=== PATIENT | female | born 1970 | race Asian ===

== ENCOUNTER 2021-09-22 06:53 | Outpatient (CLI) | payer OTHER, SELFPAY ==
[2021-09-22 08:05] LABS: Hematocrit 43.7 % (37.0-47.0); Hemoglobin 13.6 g/dL (12.0-15.0)
[2021-09-22 08:13] LABS: Cholesterol 210 mg/dL (0-200); HDL Direct 64 mg/dL; Triglycerides 209 mg/dL (<150)
[2021-09-22 08:15] LABS: Prothrombin Time 12.9 Seconds (11.1-14.7)
[2021-09-22 08:24] LABS: LDL Cholesterol Direct 95 mg/dL
[2021-09-22 09:15] LABS: Iron 115 ug/dL (37-170)
[2021-09-22 09:29] LABS: Percent Iron Saturation 28 % (20-50)
[2021-09-22 09:59] LABS: HAV RESULT Negative (Negative); Hepatitis B Core IgM Result Negative (Negative)
[2021-09-22 10:03] LABS: Hepatitis B Surface Antigen Positive (Negative)
[2021-09-22 10:10] LABS: Hepatitis B Surface Anti Res Negative; Hepatitis C Virus Antibody Negative (Negative)
[2021-09-24 10:46] LABS: Hepatitis A Antibody Total Nonreactive (Nonreactive); Hepatitis Be Antibody Reactive; Hepatitis Be Antigen Nonreactive
[2021-09-24 11:02] LABS: Ceruloplasmin 30 mg/dL (18-53)
[2021-09-24 13:26] LABS: Hepatitis B DNA PCR 136000 IU/mL; Hepatitis B DNA PCR 5.13 Log IU/mL
[2021-09-25 12:55] LABS: Mitochondrial (M2) Ab (IgG) <=20.0 U (<=20.0)
[2021-09-26 07:58] LABS: LKM 1 Antibody <=20.0 U (<=20.0)
[2021-09-27 17:56] LABS: Alpha Fetoprotein Tumor Marker 2.3 ng/mL (<6.1)
[2021-09-28 21:48] LABS: Hepatitis Delta Antibody NEGATIVE
== END 2021-09-22 06:54 | disposition home or self-care (01) ==
PROVIDERS: PCP Family Medicine; Visit Provider Nurse Practitioner
DX: E11.65 Type 2 diabetes mellitus with hyperglycemia (principal); E78.2 Mixed hyperlipidemia; B18.1 Chronic viral hepatitis B without delta-agent
CPT/HCPCS: 36415; 80061; 80074; 82104; 82105; 82390; 82728; 83520; 83540; 83550; 85014; 85018; 85610; 86038; 86376; 86692; 86706; 86707; 86708; 87350; 87517

== ENCOUNTER 2021-09-22 07:59 | Emergency (ER) | payer OTHER, SELFPAY ==
[2021-09-22] VITALS (18 sets, daily range): BP systolic 102–121; BP diastolic 60–80; PULSE 52–74; RESP 13–22; TEMP 36.6; O2SAT 97–100
--- NOTE | 2021-09-22 08:03 | PC.NURSE ---
Lab called by this RN, and requested to change pt's outpatient labs to in-patient STAT status. Estephanie in lab affirmed.
--- NOTE | 2021-09-22 08:07 | ECG_ITS ---
Measurements Intervals [place] Rate: 60 P: 0 CO: 145 QRS: 62 QRSD: 91 T: 59 QT: 450 QTc: 450 Interpretive Statements SINUS RHYTHM NO PREVIOUS ECG AVAILABLE FOR COMPARISON Electronically Signed On 09-22-2021 20:32:31 CDT by Diana De La Cruz M.D.
[2021-09-22 08:14] LABS: Glucose Point of Care 110 mg/dl (65-105)
[2021-09-22] MEDS: SODIUM CHLORIDE 0.9% IV 1,000 ML 999 ML IV CONT (08:53)
[2021-09-22 08:57] LABS: Basophils Percent Auto 0.7 % (0.2-1.2); Eosinophils Absolute Auto 0.1 K/mm3 (0-0.3); Eosinophils Percent Auto 1.4 % (0-4.4); Hematocrit 43.7 % (37.0-47.0); Hemoglobin 13.6 g/dL (12.0-15.0); Immature Granulocyte Absolute 0.01 K/mm3 (0.00-0.031); Immature Granulocyte Percent A 0.2 % (0-0.5); Lymphocytes Absolute Auto 2.27 K/mm3 (0.9-3.2); Lymphocytes Percent Auto 39.3 % (18.3-44.2); Mean Corpuscular HGB Conc 31.1 g/dl (32-36); Mean Corpuscular Hemoglobin 26.1 pg (26-34); Mean Corpuscular Volume 83.7 fl (80-100); Mean Platelet Volume 10.1 fl (7.4-10.4); Monocytes Absolute Auto 0.5 K/mm3 (0.1-0.6); Monocytes Percent Auto 8.8 % (2.6-8.5); Neutrophils Absolute Auto 2.9 K/mm3 (1.3-6.7); Neutrophils Percent Auto 49.6 % (45.5-73.1); Platelet Count Result 308 k/mm3 (150-375); Red Blood Count 5.22 M/mm3 (4.2-5.4); White Blood Count 5.8 K/mm3 (4.5-10.0)
[2021-09-22 09:00] LABS: Alanine Aminotransferase 85 U/L (6-35); Alkaline Phosphatase 87 U/L (38-126); Anion Gap 7 mmol/L (8-16); Aspartate Amino Transferase 50 U/L (14-36); Bilirubin,Total 0.4 mg/dL (0.2-1.3); Blood Urea Nitrogen 11 mg/dL (7-17); Calcium 9.6 mg/dL (8.4-10.2); Carbon Dioxide 28 mmol/L (22-30); Chloride 105 mmol/L (98-107); Estimated CRCL calculation 80 ml/min; Estimated Glomerular Filt Rate > 60; Glucose 103 mg/dL (65-110); Sodium 140 mmol/L (137-145)
--- NOTE | 2021-09-22 09:15 | ED.GENADULT ---
HPI - General Adult General Chief complaint: Syncope Stated complaint: weakness Time Seen by Provider: 09/22/21 08:04 History of Present Illness HPI narrative: Patient is a 51-year-old female who presents ER with syncope. Patient was in the [facility] lab getting a lab draw. She then had syncope x2. At this time she has no chest pain or shortness of breath. No dizziness. No weakness in arm or leg. Reports she has had dizziness in the past with blood draws. No additional concerns at this time. Reports she did not eat today because it was a fasting blood test. Related Data Home Medications Medication Instructions Recorded Confirmed cyanocobalamin (vitamin B-12) 1,000 mcg PO DAILY 08/29/21 1,000 mcg capsule omega-3 fatty acids-fish oil 360 1 cap PO DAILY 08/29/21 mg-1,200 mg capsule (Fish Oil) Allergies Allergy/AdvReac Type Severity Reaction Status Date / Time No Known Allergies Allergy Verified 08/29/21 09:35 Review of Systems Review of Systems: All systems reviewed & are unremarkable except as noted in HPI and below Constitutional: Constitutional: Denies chills and Denies fever(s) Gastrointestinal: Gastrointestinal: Denies abdominal pain, Denies nausea and Denies vomiting Neurologic: Denies confusion, Reports syncope, Denies focal weakness and Denies numbness PMFSH Past Medical History Medical History (Updated 09/22/21 @ 09:38 by Ronaldo Haywood MD) Chronic hepatitis B virus infection Diabetes Family history of hepatitis B Family history of liver cancer Surgical History Surgical History (Updated 09/22/21 @ 09:18 by Ronaldo Haywood MD) History of appendectomy Family History Family History (Updated 08/29/21 @ 09:38 by Kenyatta Whyte CMA) Mother Diabetes mellitus Grandparent Liver cancer Social History Social History (Updated 08/29/21 @ 09:38 by Kenyatta Whyte CMA) Smoking status: Never smoker Alcohol intake: never Substance use: never Exam Narrative: GENERAL: Well-appearing, well-nourished, and in no acute distress. HEAD: Normocephalic, atraumatic. EYES: PERRL and EOMI. CHEST: Clear to auscultation. No respiratory distress. HEART: Regular rate and rhythm. Normal peripheral pulses. ABDOMEN: Soft, nontender, nondistended. EXTREMITIES: Normal range of motion. No edema. SKIN: Warm, dry, no rash. NEURO: Alert and oriented x3. PSYCH: Normal mood and affect. Course Course Emergency Course: Patient awake alert and oriented x3. Hydrated. Unremarkable orthostatics. Symptoms felt to be related to vasovagal syncope from blood draw Vital Signs Vital signs: Vital Signs Temperature 97.9 F 09/22/21 08:07 Pulse Rate 55 L 09/22/21 08:07 Respiratory Rate 16 09/22/21 08:07 Blood Pressure 104/70 09/22/21 08:07 Pulse Oximetry 100 09/22/21 08:07 Oxygen Delivery Room Air 09/22/21 08:07 Temperature 97.9 F 09/22/21 08:07 Pulse Rate 64 09/22/21 09:23 Respiratory Rate 16 09/22/21 08:07 Blood Pressure 118/60 09/22/21 09:23 Pulse Oximetry 100 09/22/21 08:07 Oxygen Delivery Room Air 09/22/21 08:07 Medical Decision Making Vital Signs Vital Signs: Vital Signs Temperature 97.9 F 09/22/21 08:07 Pulse Rate 55 L 09/22/21 08:07 Respiratory Rate 16 09/22/21 08:07 Blood Pressure 104/70 09/22/21 08:07 Pulse Oximetry 100 09/22/21 08:07 Oxygen Delivery Room Air 09/22/21 08:07 Temperature 97.9 F 09/22/21 08:07 Pulse Rate 64 09/22/21 09:23 Respiratory Rate 16 09/22/21 08:07 Blood Pressure 118/60 09/22/21 09:23 Pulse Oximetry 100 09/22/21 08:07 Oxygen Delivery Room Air 09/22/21 08:07 Lab Data Result diagrams: 09/22/21 07:33 09/22/21 07:33 Labs: Lab Results 09/22/21 09/22/21 09/22/21 Range/Units 07:33 07:33 08:04 WBC 5.8 (4.5-10.0) K/mm3 RBC 5.22 (4.2-5.4) M/mm3 Hgb 13.6 (12.0-15.0) g/dL Hct 43.7 (37.0-47.
== END 2021-09-22 09:55 | disposition home or self-care (01) ==
PROVIDERS: Emergency Provider Emergency Medicine; PCP Family Medicine
DX: R55 Syncope and collapse (principal); E11.9 Type 2 diabetes mellitus without complications; B18.1 Chronic viral hepatitis B without delta-agent
CPT/HCPCS: 36415; 80053; 82948; 85025; 93005; 96360; 99284; J7030

== ENCOUNTER 2021-10-24 08:55 | Outpatient (CLI) | payer OTHER, SELFPAY ==
--- NOTE | ~2021-10-24 | US_ITS ---
US abdomen complete DATE: 10/24/2021 09:44 INDICATION: Chronic viral hepatitis B TECHNIQUE: Real-time imaging of the abdomen, Doppler analysis COMPARISON: None FINDINGS: No hepatic or pancreatic space-occupying mass lesion is detected. Normal hepatopedal portal venous flow direction. No gallstones or gallbladder wall thickening. Negative sonographic Bradley's sign. The common bile duct measures 3.6 mm, normal. No renal mass lesion or hydronephrosis. Normal caliber of the abdominal aorta. The inferior vena cava is unremarkable. Normal splenic size. IMPRESSION: No significant abnormality Reviewed, dictated and finalized at [facility]. Reviewed, dictated and finalized at location [facility]. IMPRESSION: No significant abnormality
== END 2021-10-24 08:56 | disposition home or self-care (01) ==
PROVIDERS: PCP Family Medicine; Visit Provider Nurse Practitioner
DX: B18.1 Chronic viral hepatitis B without delta-agent (principal)
CPT/HCPCS: 76700

== ENCOUNTER 2022-04-03 08:07 | Outpatient (CLI) | payer OTHER, SELFPAY ==
[2022-04-03 08:41] LABS: Alanine Aminotransferase 29 U/L (6-35); Albumin Level 4.7 g/dL (3.5-5.1); Alkaline Phosphatase 80 U/L (38-126); Aspartate Amino Transferase 33 U/L (14-36); Bilirubin,Total 0.6 mg/dL (0.2-1.3)
[2022-04-06 11:41] LABS: Hepatitis B DNA PCR <1.00 Log IU/mL; Hepatitis B DNA PCR <10 IU/mL
== END 2022-04-03 08:08 | disposition home or self-care (01) ==
LOC: ANHLAB 08:08
PROVIDERS: PCP Family Medicine; Visit Provider Nurse Practitioner
DX: B18.1 Chronic viral hepatitis B without delta-agent (principal)
CPT/HCPCS: 36415; 80076; 87517

== ENCOUNTER 2022-04-24 07:19 | Outpatient (CLI) | payer OTHER, SELFPAY ==
--- NOTE | ~2022-04-24 | US_ITS ---
EXAMINATION: US abdomen limited DATE: 04/24/2022 08:07 INDICATION: Chronic viral hepatitis B TECHNIQUE: Multiple grayscale and Doppler ultrasound images of the abdomen were obtained. COMPARISON: 10/24/2021 FINDINGS: The head and body of the pancreas are normal. The pancreatic tail is obscured by bowel gas. The liver is normal with normal echogenicity and echotexture. No surface nodularity. Normal hepatope cailin flow in the main portal vein. The gallbladder is normal with no abnormal wall thickening, pericho lecystic fluid or stones. The normal common bile duct measures 3 mm. There was no sonographic Bradley sign. IMPRESSION: 1. Unremarkable ultrasound. Reviewed, dictated and finalized at location [facility]. T COMPUTER IMPRESSION: 1. Unremarkable ultrasound.
== END 2022-04-24 07:20 | disposition home or self-care (01) ==
LOC: ANHIMG 07:22
PROVIDERS: PCP Family Medicine; Visit Provider Nurse Practitioner
DX: B18.1 Chronic viral hepatitis B without delta-agent (principal)
CPT/HCPCS: 76705

== ENCOUNTER 2022-09-25 08:39 | Outpatient (CLI) | payer OTHER, SELFPAY ==
[2022-09-30 03:14] LABS: Hepatitis B Core Ab Total Reactive (Nonreactive)
== END 2022-09-25 08:40 | disposition home or self-care (01) ==
PROVIDERS: PCP Family Medicine; Visit Provider Nurse Practitioner
DX: B18.1 Chronic viral hepatitis B without delta-agent (principal)
CPT/HCPCS: 36415; 86704

== ENCOUNTER 2022-09-28 07:09 | Outpatient (CLI) | payer OTHER, SELFPAY ==
--- NOTE | ~2022-09-28 | US_ITS ---
US right upper quadrant INDICATION: Chronic viral hepatitis B PROCEDURE: Realtime right upper abdominal ultrasound. COMPARISON: Ultrasound dated 04/24/2022 FINDINGS: The pancreas is normal without focal mass or pancreatic ductal dilation. Liver echotexture is normal without focal mass or intrahepatic biliary dilatation. There is normal directional flow i n the portal vein. The gallbladder is normal without stones, gallbladder wall thickening or pericholecystic fluid. Comm on bile duct measures 3 mm. No sonographic Bradley's sign. IMPRESSION: 1: Normal limited abdominal ultrasound. Reviewed, dictated and finalized at location [facility].
== END 2022-09-28 07:10 | disposition home or self-care (01) ==
PROVIDERS: PCP Family Medicine; Visit Provider Internal Medicine Gastroenterology
DX: B18.1 Chronic viral hepatitis B without delta-agent (principal)
CPT/HCPCS: 76705

== ENCOUNTER 2022-11-02 11:42 | Outpatient (CLI) | payer OTHER, SELFPAY ==
[2022-11-02 12:27] LABS: Alanine Aminotransferase 29 U/L (6-35); Albumin Level 4.9 g/dL (3.5-5.1); Alkaline Phosphatase 83 U/L (38-126); Anion Gap 10 mmol/L (8-16); Aspartate Amino Transferase 27 U/L (14-36); Bilirubin,Total 0.4 mg/dL (0.2-1.3); Blood Urea Nitrogen 13 mg/dL (7-17); Calcium 9.9 mg/dL (8.4-10.2); Carbon Dioxide 29 mmol/L (22-30); Chloride 103 mmol/L (98-107); Estimated Glomerular Filt Rate > 60; Glucose 103 mg/dL (65-110); Potassium 4.3 mmol/L (3.4-5.0); Sodium 142 mmol/L (137-145)
[2022-11-02 13:09] LABS: Hepatitis B Surface Antigen Positive (Negative)
[2022-11-02 13:22] LABS: Hepatitis B Surface Anti Res Negative
[2022-11-06 16:56] LABS: Hepatitis B DNA PCR Not Detected
== END 2022-11-02 11:43 | disposition home or self-care (01) ==
PROVIDERS: PCP Family Medicine; Visit Provider Internal Medicine Gastroenterology
DX: B18.1 Chronic viral hepatitis B without delta-agent (principal); R74.8 Abnormal levels of other serum enzymes
CPT/HCPCS: 36415; 80053; 86706; 87340; 87517

== ENCOUNTER 2023-04-12 07:08 | Outpatient (CLI) | payer OTHER, SELFPAY ==
--- NOTE | ~2023-04-12 | US_ITS ---
US right upper quadrant INDICATION: Chronic viral hepatitis B. PROCEDURE: Realtime right upper abdominal ultrasound. COMPARISON: No prior studies for comparison. FINDINGS: The pancreas is normal without focal mass or pancreatic ductal dilation. Liver echotexture is normal without focal mass or intrahepatic biliary dilatation. There is normal directional flow i n the portal vein. The gallbladder is normal without stones, gallbladder wall thickening or pericholecystic fluid. Comm on bile duct measures 3 mm. No sonographic Bradley's sign. IMPRESSION: 1: Normal limited abdominal ultrasound. Reviewed, dictated and finalized at location L. [employer]
== END 2023-04-12 07:09 | disposition home or self-care (01) ==
LOC: ANHIMG 07:10
PROVIDERS: PCP Family Medicine; Visit Provider Internal Medicine Gastroenterology
DX: B18.1 Chronic viral hepatitis B without delta-agent (principal); R74.8 Abnormal levels of other serum enzymes
CPT/HCPCS: 76705

== ENCOUNTER 2023-05-21 08:58 | Outpatient (CLI) | payer OTHER, SELFPAY ==
[2023-05-21 10:08] LABS: Alanine Aminotransferase 33 U/L (6-35); Albumin Level 4.7 g/dL (3.5-5.1); Alkaline Phosphatase 95 U/L (38-126); Anion Gap 8 mmol/L (8-16); Aspartate Amino Transferase 29 U/L (14-36); Bilirubin,Total 0.7 mg/dL (0.2-1.3); Blood Urea Nitrogen 12 mg/dL (7-17); Calcium 9.5 mg/dL (8.4-10.2); Carbon Dioxide 29 mmol/L (22-30); Chloride 105 mmol/L (98-107); Estimated Glomerular Filt Rate > 60; Glucose 110 mg/dL (65-110); Potassium 4.2 mmol/L (3.4-5.0); Sodium 142 mmol/L (137-145)
[2023-05-21 10:51] LABS: Hepatitis B Surface Antigen Positive (Negative)
[2023-05-21 11:08] LABS: Hepatitis B Surface Anti Res Negative
[2023-05-25 09:40] LABS: Hepatitis B DNA PCR Not Detected
== END 2023-05-21 08:59 | disposition home or self-care (01) ==
PROVIDERS: PCP Family Medicine; Visit Provider Internal Medicine Gastroenterology
DX: B18.1 Chronic viral hepatitis B without delta-agent (principal); R74.8 Abnormal levels of other serum enzymes
CPT/HCPCS: 36415; 80053; 86706; 87340; 87517

== ENCOUNTER 2023-09-26 08:52 | Outpatient (CLI) | payer OTHER, SELFPAY ==
--- NOTE | ~2023-09-26 | US_ITS ---
Limited Abdominal Sonogram: Real-time sonographic imaging of the right upper quadrant was performed. Clinical History: Chronic hepatitis B Findings: The liver appears normal with no evidence of mass lesion or bile duct dilatation. Main por cailin vein demonstrates normal direction of flow. The gallbladder is well distended, and appears normal with no evidence of gallstone or wall thickening. The common bile duct measures 3 mm. The visualize d pancreas, aorta, and IVC are unremarkable. Impression: No significant abnormality seen. Reviewed, dictated and finalized at location . Impression: No significant abnormality seen.
== END 2023-09-26 08:53 | disposition home or self-care (01) ==
LOC: ANHIMG 08:57
PROVIDERS: PCP Family Medicine; Visit Provider Nurse Practitioner
DX: B18.1 Chronic viral hepatitis B without delta-agent (principal)
CPT/HCPCS: 76705

== ENCOUNTER 2023-12-24 08:56 | Outpatient (CLI) | payer OTHER, SELFPAY ==
[2023-12-24 09:20] LABS: Hematocrit 41.4 % (37.0-47.0); Hemoglobin 13.1 g/dL (12.0-15.0); Mean Corpuscular HGB Conc 31.6 g/dl (32-36); Mean Corpuscular Hemoglobin 26.5 pg (26-34); Mean Corpuscular Volume 83.6 fl (80-100); Mean Platelet Volume 9.7 fl (7.4-10.4); Platelet Count Result 273 k/mm3 (150-375); Red Blood Count 4.95 M/mm3 (4.2-5.4); Red Cell Distribution Width 13.6 % (11.5-14.5); White Blood Count 4.1 K/mm3 (4.5-10.0)
[2023-12-24 09:34] LABS: Alanine Aminotransferase 33 U/L (6-35); Albumin Level 4.5 g/dL (3.5-5.1); Alkaline Phosphatase 76 U/L (38-126); Anion Gap 9 mmol/L (4-12); Aspartate Amino Transferase 31 U/L (14-36); Bilirubin,Total 0.6 mg/dL (0.2-1.3); Blood Urea Nitrogen 13 mg/dL (7-17); Calcium 9.4 mg/dL (8.4-10.2); Carbon Dioxide 31 mmol/L (22-30); Chloride 100 mmol/L (98-107); Estimated Glomerular Filt Rate > 60; Glucose 116 mg/dL (65-110); Potassium 4.4 mmol/L (3.4-5.0); Sodium 140 mmol/L (137-145)
[2023-12-24 10:39] LABS: Hepatitis B Surface Antigen Positive (Negative)
[2023-12-24 10:51] LABS: Hepatitis B Surface Anti Res Negative
[2023-12-25 16:19] LABS: Hepatitis B DNA PCR Not Detected
[2023-12-25 16:20] LABS: Hepatitis B DNA PCR Not Detected
== END 2023-12-24 08:57 | disposition home or self-care (01) ==
PROVIDERS: PCP Family Medicine; Visit Provider Internal Medicine Gastroenterology
DX: B18.1 Chronic viral hepatitis B without delta-agent (principal)
CPT/HCPCS: 36415; 80053; 85027; 86706; 87340; 87517